=== PATIENT | male | born 1950 | race Caucasian/White ===

== ENCOUNTER 2024-12-15 15:26 | Emergency (ER) | payer OTHER, SELFPAY ==
[2024-12-15] VITALS (10 sets, daily range): BP systolic 148–157; BP diastolic 88–93; PULSE 69–87; RESP 11–28; TEMP 36.8; O2SAT 99–100
--- NOTE | ~2024-12-15 | XR_ITS ---
EXAMINATION: XR chest 2V Exam Date/Time: 12/15/2024 16:02 CDT HISTORY: dizziness Comparison: None. RESULT: Lines, tubes, and devices: Median sternotomy wires. Several wires are fractured but remain in normal position. Lungs and pleura: Clear. Cardiomediastinal silhouette: Stable. Other: No acute osseous or upper abdominal finding. IMPRESSION: No acute cardiopulmonary process. Reviewed, dictated and finalized at location K.
--- NOTE | ~2024-12-15 | CT_ITS ---
EXAMINATION: CT brain wo con DATE: 12/15/2024 16:30 INDICATION: dizziness . TECHNIQUE: Computed tomography (CT) of the head was performed without intravenous contrast. The mA wa s adjusted according to patient size. Iterative reconstruction technique was employed. The dose-lengt h product was 681.00 mGy-cm. COMPARISON: None. FINDINGS: No acute intracranial hemorrhage or extra-axial fluid collection. No hydrocephalus, mass, or herniation. No acute ischemic infarct. Unremarkable dural venous sinus attenuation. No acute osseous abnormality. Bilateral maxillary retention cysts/polyps, trace left mastoid fluid, the remaining aerated spaces ar e clear. Mild atrophy and chronic white matter change. Atherosclerotic intracranial calcification. IMPRESSION: No acute intracranial process. Reviewed, dictated and finalized at location K.
[2024-12-15 16:18] LABS: Basophils Absolute Auto 0.1 K/mm3 (0.0-0.1); Basophils Percent Auto 0.9 % (0.2-1.2); Eosinophils Absolute Auto 0.1 K/mm3 (0-0.3); Eosinophils Percent Auto 1.6 % (0-4.4); Hematocrit 41.2 % (42.0-52.0); Hemoglobin 13.5 g/dL (14.0-18.0); Immature Granulocyte Absolute 0.04 K/mm3 (0.00-0.031); Immature Granulocyte Percent A 0.5 % (0-0.5); Lymphocytes Absolute Auto 2.05 K/mm3 (0.9-3.2); Lymphocytes Percent Auto 25.1 % (18.3-44.2); Mean Corpuscular HGB Conc 32.8 g/dl (32-36); Mean Corpuscular Hemoglobin 28.2 pg (26-34); Mean Platelet Volume 10.8 fl (7.4-10.4); Monocytes Absolute Auto 0.6 K/mm3 (0.1-0.6); Monocytes Percent Auto 7.6 % (2.6-8.5); Neutrophils Absolute Auto 5.3 K/mm3 (1.3-6.7); Neutrophils Percent Auto 64.3 % (45.5-73.1); Platelet Count Result 257 k/mm3 (150-375); Red Blood Count 4.79 M/mm3 (4.6-6.20); Red Cell Distribution Width 14.2 % (11.5-14.5); White Blood Count 8.2 K/mm3 (4.5-10.0)
[2024-12-15] MEDS: SODIUM CHLORIDE 0.9% IV 1,000 ML 999 ML IV CONT (16:34)
[2024-12-15 16:35] LABS: Alanine Aminotransferase 26 U/L (6-50); Albumin Level 4.1 g/dL (3.5-5.1); Alkaline Phosphatase 88 U/L (38-126); Anion Gap 18 mmol/L (4-12); Aspartate Amino Transferase 29 U/L (17-59); Bilirubin,Total 0.5 mg/dL (0.2-1.3); Blood Urea Nitrogen 19 mg/dL (9-20); Calcium 9.1 mg/dL (8.4-10.2); Carbon Dioxide 15 mmol/L (22-30); Chloride 104 mmol/L (98-107); Estimated CRCL calculation 44 ml/min; Estimated Glomerular Filt Rate 41; Glucose 263 mg/dL (65-110); Potassium 3.6 mmol/L (3.4-5.0); Sodium 137 mmol/L (137-145); Total Protein 7.6 g/dL (6.3-8.2)
[2024-12-15] MEDS: MECLIZINE HCL 25 MG TABLET PO (16:35)
[2024-12-15 16:36] LABS: Ethanol < 10 mg/dL (<10)
[2024-12-15 17:09] LABS: Thyroid Stimulating Hormone Reflex 0.879 uIU/mL (0.465-4.68)
[2024-12-15 17:52] LABS: Add Urine Microscopic? YES; Appearance Urine Clear (Clear); Bacteria Urine None Seen /hpf; Bilirubin Urine Negative (Negative); Blood Urine Negative (Negative); Color Urine Yellow (Yellow); Glucose Urine UA 3+ mg/dL (Negative); Ketones Urine Negative (Negative); Leukocyte Esterase Ur Negative LEU/UL (Negative); Nitrate Urine Negative (Negative); Non Pathogenic Casts 0-2; Protein Urine 1+ mg/dL (Negative); RBC Urine 0-2 /hpf (0-2); Specific Grav Ur 1.015 (1.001-1.035); Squamous Epithelial Cell Urine None Seen /hpf (Few); Urobilinogen Urine 0.2 mg/dL (<2.0); WBC Urine 0-5 /hpf (0-3); pH Urine 5.5 (5.0-9.0)
[2024-12-15 18:58] LABS: Barbiturate Screen Urine Negative (Negative); Benzodiazepines Screen Urine Negative (Negative); Cannabinoid Screen Urine Negative (Negative); Cocaine Screen Urine Negative (Negative); Methadone Screen Urine Negative (Negative); Opiate Screen Urine Negative (Negative); Phencyclidine Screen Urine Negative (Negative)
[2024-12-15 19:04] LABS: Amphetamine Screen Urine Negative (Negative)
--- NOTE | 2024-12-15 19:05 | ED.GENADULT ---
HPI - General Adult General Chief complaint: Dizziness <Pascual Joseph MD - Last Filed: 12/15/24 19:38> Stated complaint: diarrhea <Pascual Joseph MD - Last Filed: 12/15/24 19:38> Time Seen by Provider: 12/15/24 15:40 <Pascual Joseph MD - Last Filed: 12/15/24 19:38> History of Present Illness HPI narrative: Patient is a 74-year-old male who presents ER with multiple complaints. Main complaint is dizziness. Spinning. Ongoing for days. Worse when he rolls over but also when he sits up and when he tries to walk. No fevers or chills or sweats. He has also been having some diarrhea that is been a chronic issue and he has seen his PCP about it. He has altered his diet without improvement. No rub dark black stools. Patient's final issues depression. Reports he has been depressed for over 6 months. His left him and is living in [place]. He did have a moment 3 weeks ago where he had told his [employer] that he was going to drive down to [place] and shoot her. Please came to his home. He was not taking inject custody. 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 Has no access to fire arms because he spent 9 months in intermediate for having a modified weapon in [place]. He has no SI or HI at this time. <Pascual Joseph MD - Last Filed: 12/15/24 19:38> Related Data Home medications: Home Medications ?Medication ?Instructions ?Recorded ?Confirmed ?Last Taken ?Type aspirin 81 mg tablet,delayed 81 mg PO DAILY 03/22/24 11/05/24 Unknown History release (Adult Aspirin Regimen) calcium 600 mg (as carbonate)-vit 1 tablet PO DAILY 03/22/24 11/05/24 Unknown History D3 20 mcg (800 unit) chewable tablet (Caltrate plus D) metoprolol tartrate 75 mg tablet 75 mg PO DAILY 03/22/24 11/05/24 Unknown History multivitamin 1 tablet PO DAILY 03/22/24 11/05/24 Unknown History tamsulosin 0.4 mg capsule 0.4 mg PO DAILY 03/22/24 11/05/24 Unknown History <Pascual Joseph MD - Last Filed: 12/15/24 19:38> Allergies/adverse reactions: Allergies Allergy/AdvReac Type Severity Reaction Status Date / Time No Known Allergies Allergy Verified 12/15/24 15:33 <Pascual Joseph MD - Last Filed: 12/15/24 19:38> Review of Systems Review of Systems: All systems reviewed & are unremarkable except as noted in HPI and below <Pascual Joseph MD - Last Filed: 12/15/24 19:38> Constitutional: Constitutional: Reports no additional constitutional complaints <Pascual Joseph MD - Last Filed: 12/15/24 19:38> ENT: Reports system reviewed and no additional complaints, except as documented <Pascual Joseph MD - Last Filed: 12/15/24 19:38> Cardiovascular: Cardiovascular: Reports no additional cardiovascular complaints <Pascual Joseph MD - Last Filed: 12/15/24 19:38> Respiratory: Respiratory: Reports no additional respiratory complaints <Pascual Joseph MD - Last Filed: 12/15/24 19:38> Gastrointestinal: Gastrointestinal: Reports no additional gastrointestinal complaints <Pascual Joseph MD - Last Filed: 12/15/24 19:38> Neurologic: Reports system reviewed and no additional complaints, except as documented <Pascual Joseph MD - Last Filed: 12/15/24 19:38> PMFSH Past Medical History Medical History: Medical History Heart disease Kidney disease Diabetes <Pascual Joseph MD - Last Filed: 12/15/24 19:38> Surgical History Surgical History: Surgical History History of left knee replacement H/O heart artery stent most recent 12/2023 Hx of heart bypass surgery 1997 <Pascual Joseph MD - Last Filed: 12/15/24 19:38> Family History Family History: Family History Mother Diabetes mellitus Hypertension Father Alcoholism <Pascual Joseph MD - Last Filed: 12/15/24 19:38> Social History Social History: Social History Smoking status: Never smoker Second hand tobacco smoke exposure: Yes Alcohol intake: current Substance use: never Do You Feel Safe in your Home?: Yes Lack of Transportation: No Lack of Food: Never True Current Housing: I Have Housing Concerned About Future Housing: No Difficulty Paying Gas/Electric Bills: No Difficulty Paying for Meds: No Currently Unemployed: No Education: Trade/Vocational Certificate Difficulty w/ Childcare or Family Care: No Living arrangements: alone Occupation/Education: retired Gender identity (if verbalized by the patient): Male Sexual Orientation (if Verbalized by the Patient): Straight or Heterosexual Spiritual care concerns: No Agree to blood products: Yes <Pascual Joseph MD - Last Filed: 12/15/24 19:38> Exam Narrative: GENERAL: Well-appearing, well-nourished, and in no acute distress. HEAD: Normocephalic, atraumatic. EYES: PERRLA and EOMI. Horizontal nystagmus bilaterally. ENT: Mucous membranes moist. Normal TMs bilaterally, there was mild cerumen impaction right side but is irrigated and removed by nursing staff. NECK: Supple. CHEST: Clear to auscultation. No respiratory distress. HEART: Regular rate and rhythm. Normal peripheral pulses. ABDOMEN: Soft, nontender, nondistended. EXTREMITIES: Normal range of motion. No edema. SKIN: Warm, dry, no rash. NEURO: Clear speech, no facial droop, normal strength in upper and lower extremities. Slightly imbalanced when standing. Alert and oriented x3. PSYCH: Normal mood and affect. Tearful when talking about his . <Pascual Joseph MD - Last Filed: 12/15/24 19:38> Course Course Emergency Course: 193: Vertigo improved with meclizine and Valium. No stroke on imaging. Apparently patient had called his daughter mentioned outside today so we will have crisis come out and evaluate him. <Pascual Joseph MD - Last Filed: 12/15/24 19:38> 193: Vertigo improved with meclizine and Valium. No stroke on imaging. Apparently patient had called his daughter mentioned outside today so we will have crisis come out and evaluate him. Patient signed out to me at 19:50 pending evaluation by crisis but he has been ambulating and dizziness/vertigo improved. Crisis evaluated patient and perform safety plan. Did not feel he met involuntary criteria. Stable for discharge with follow up. RN Lynn does raise concern due to conversation she had had with patient's daughter and concern he might still have access to weapons. Crisis team did go back in and talk with patient with Lynn present as well and then also called patient's daughter. All are in consensus with discharge after safety planning and risk is felt to be low. Patient's daughter/POA was also given crisis team's direct number. <Honey Morales MD - Last Filed: 12/16/24 08:40> Vital Signs Vital signs: Vital Signs Temperature 98.3 F 12/15/24 15:28 Pulse Rate 76 12/15/24 15:28 Respiratory Rate 18 12/15/24 15:28 Blood Pressure 157/93 H 12/15/24 15:28 Pulse Oximetry 99 12/15/24 15:28 Oxygen Delivery Room Air 12/15/24 15:28 Temperature 98.3 F 12/15/24 15:28 Pulse Rate 69 12/15/24 17:34 Respiratory Rate 12 12/15/24 17:34 Blood Pressure 148/88 H 12/15/24 16:02 Pulse Oximetry 100 12/15/24 17:34 Oxygen Delivery Room Air 12/15/24 15:40 <Pascual Joseph MD - Last Filed: 12/15/24 19:38> Vital Signs Temperature 98.3 F 12/15/24 15:28 Pulse Rate 76 12/15/24 15:28 Respiratory Rate 18 12/15/24 15:28 Blood Pressure 157/93 H 12/15/24 15:28 Pulse Oximetry 99 12/15/24 15:28 Oxygen Delivery Room Air 12/15/24 15:28 Temperature 98.3 F 12/15/24 15:28 Pulse Rate 69 12/15/24 17:34 Respiratory Rate 12 12/15/24 17:34 Blood Pressure 148/88 H 12/15/24 16:02 Pulse Oximetry 100 12/15/24 17:34 Oxygen Delivery Room Air 12/15/24 15:40 <Honey Morales MD - Last Filed: 12/16/24 08:40> Medical Decision Making Vital Signs Vital Signs: Vital Signs Temperature 98.3 F 12/15/24 15:28 Pulse Rate 76 12/15/24 15:28 Respiratory Rate 18 12/15/24 15:28 Blood Pressure 157/93 H 12/15/24 15:28 Pulse Oximetry 99 12/15/24 15:28 Oxygen Delivery Room Air 12/15/24 15:28 Temperature 98.3 F 12/15/24 15:28 Pulse Rate 69 12/15/24 17:34 Respiratory Rate 12 12/15/24 17:34 Blood Pressure 148/88 H 12/15/24 16:02 Pulse Oximetry 100 12/15/24 17:34 Oxygen Delivery Room Air 12/15/24 15:40 <Pascual Joseph MD - Last Filed: 12/15/24 19:38> Vital Signs Temperature 98.3 F 12/15/24 15:28 Pulse Rate 76 12/15/24 15:28 Respiratory Rate 18 12/15/24 15:28 Blood Pressure 157/93 H 12/15/24 15:28 Pulse Oximetry 99 12/15/24 15:28 Oxygen Delivery Room Air 12/15/24 15:28 Temperature 98.3 F 12/15/24 15:28 Pulse Rate 69 12/15/24 17:34 Respiratory Rate 12 12/15/24 17:34 Blood Pressure 148/88 H 12/15/24 16:02 Pulse Oximetry 100 12/15/24 17:34 Oxygen Delivery Room Air 12/15/24 15:40 <Honey Morales MD - Last Filed: 12/16/24 08:40> Lab Data Result diagrams: 12/15/24 16:12 12/15/24 16:12 <Pascual Joseph MD - Last Filed: 12/15/24 19:38> Labs: Lab Results 12/15/24 12/15/24 12/15/24 Range/Units 16:12 17:23 20:24 WBC 8.2 (4.5-10.0) K/mm3 RBC 4.79 (4.6-6.20) M/mm3 Hgb 13.5 L (14.0-18.0) g/dL Hct 41.2 L (42.0-52.0) % MCV 86.0 (80-100) fl MCH 28.2 (26-34) pg MCHC 32.8 (32-36) g/dl RDW 14.2 (11.5-14.5) % Plt Count 257 (150-375) k/mm3 MPV 10.8 H (7.4-10.4) fl Immature Gran % (Auto) 0.5 (0-0.5) % Neut % (Auto) 64.3 (45.5-73.1) % Lymph % (Auto) 25.1 (18.3-44.2) % Pitt % (Auto) 7.6 (2.6-8.5) % Eos % (Auto) 1.6 (0-4.4) % Baso % (Auto) 0.9 (0.2-1.2) % Lymph # (Auto) 2.05 (0.9-3.2) K/mm3 Pitt # (Auto) 0.6 (0.1-0.6) K/mm3 Eos # (Auto) 0.1 (0-0.3) K/mm3 Baso # (Auto) 0.1 (0.0-0.1) K/mm3 Abs Immat Gran (auto) 0.04 H (0.00-0.031) K/mm3 Absolute Neuts (auto) 5.3 (1.3-6.7) K/mm3 Absolute Nucleated RBC 0.000 (0.0-0.012) K/mm3 Nucleated RBC % 0.0 (0.0-0.2) % Sodium 137 (137-145) mmol/L Potassium 3.6 (3.4-5.0) mmol/L Chloride 104 (98-107) mmol/L Carbon Dioxide 15 L (22-30) mmol/L Anion Gap 18 H (4-12) mmol/L BUN 19 (9-20) mg/dL Creatinine 1.65 H (0.7-1.3) mg/dL Estim Creat Clear Calc 44 ml/min Estimated GFR 41 L (59 - ) Glucose 263 H (65-110) mg/dL Calcium 9.1 (8.4-10.2) mg/dL Total Bilirubin 0.5 (0.2-1.3) mg/dL AST 29 (17-59) U/L ALT 26 (6-50) U/L Alkaline Phosphatase 88 (38-126) U/L Total Protein 7.6 (6.3-8.2) g/dL Albumin 4.1 (3.5-5.1) g/dL TSH (Reflex) 0.879 (0.465-4.68) uIU/mL Urine Color Yellow (Yellow) Urine Appearance Clear (Clear) Urine pH 5.5 (5.0-9.0) Ur Specific Stanton 1.015 (1.001-1.035) Urine Protein 1+ H (Negative) mg/dL Urine Glucose (UA) 3+ H (Negative) mg/dL Urine Ketones Negative (Negative) mg/dL Ur Blood (Man) Negative (Negative) Urine Nitrate Negative (Negative) Urine Bilirubin Negative (Negative) Urine Urobilinogen 0.2 (<2.0) mg/dL Leukocyte Esterase Rfl Negative (Negative) ROBERTO/UL Urine RBC 0-2 (0-2) /hpf Urine WBC 0-5 (0-3) /hpf Ur Squamous Epith Cells None seen (Few) /hpf Urine Bacteria None seen /hpf Urine Casts 0-2 Urine Opiates Screen Negative (Negative) Urine Methadone Screen Negative (Negative) Ur Barbiturates Screen Negative (Negative) Ur Phencyclidine Scrn Negative (Negative) Ur Amphetamine Screen Negative (Negative) U Benzodiazepines Scrn Negative (Negative) Urine Cocaine Screen Negative (Negative) U Cannabinoids Screen Negative (Negative) Ethyl Alcohol < 10 (<10) mg/dL Influenza A (RT-PCR) Negative (Negative) Influenza B (RT-PCR) Negative (Negative) RSV (RT-PCR) Negative (Negative) SARS-CoV-2 RNA (RT-PCR) Negative (Negative) <Pascual Joseph MD - Last Filed: 12/15/24 19:38> Lab Results 12/15/24 12/15/24 12/15/24 Range/Units 16:12 17:23 20:24 WBC 8.2 (4.5-10.0) K/mm3 RBC 4.79 (4.6-6.20) M/mm3 Hgb 13.5 L (14.0-18.0) g/dL Hct 41.2 L (42.0-52.0) % MCV 86.0 (80-100) fl MCH 28.2 (26-34) pg MCHC 32.8 (32-36) g/dl RDW 14.2 (11.5-14.5) % Plt Count 257 (150-375) k/mm3 MPV 10.8 H (7.4-10.4) fl Immature Gran % (Auto) 0.5 (0-0.5) % Neut % (Auto) 64.3 (45.5-73.1) % Lymph % (Auto) 25.1 (18.3-44.2) % Pitt % (Auto) 7.6 (2.6-8.5) % Eos % (Auto) 1.6 (0-4.4) % Baso % (Auto) 0.9 (0.2-1.2) % Lymph # (Auto) 2.05 (0.9-3.2) K/mm3 Pitt # (Auto) 0.6 (0.1-0.6) K/mm3 Eos # (Auto) 0.1 (0-0.3) K/mm3 Baso # (Auto) 0.1 (0.0-0.1) K/mm3 Abs Immat Gran (auto) 0.04 H (0.00-0.031) K/mm3 Absolute Neuts (auto) 5.3 (1.3-6.7) K/mm3 Absolute Nucleated RBC 0.000 (0.0-0.012) K/mm3 Nucleated RBC % 0.0 (0.0-0.2) % Sodium 137 (137-145) mmol/L Potassium 3.6 (3.4-5.0) mmol/L Chloride 104 (98-107) mmol/L Carbon Dioxide 15 L (22-30) mmol/L Anion Gap 18 H (4-12) mmol/L BUN 19 (9-20) mg/dL Creatinine 1.65 H (0.7-1.3) mg/dL Estim Creat Clear Calc 44 ml/min Estimated GFR 41 L (59 - ) Glucose 263 H (65-110) mg/dL Calcium 9.1 (8.4-10.2) mg/dL Total Bilirubin 0.5 (0.2-1.3) mg/dL AST 29 (17-59) U/L ALT 26 (6-50) U/L Alkaline Phosphatase 88 (38-126) U/L Total Protein 7.6 (6.3-8.2) g/dL Albumin 4.1 (3.5-5.1) g/dL TSH (Reflex) 0.879 (0.465-4.68) uIU/mL Urine Color Yellow (Yellow) Urine Appearance Clear (Clear) Urine pH 5.5 (5.0-9.0) Ur Specific Stanton 1.015 (1.001-1.035) Urine Protein 1+ H (Negative) mg/dL Urine Glucose (UA) 3+ H (Negative) mg/dL Urine Ketones Negative (Negative) mg/dL Ur Blood (Man) Negative (Negative) Urine Nitrate Negative (Negative) Urine Bilirubin Negative (Negative) Urine Urobilinogen 0.2 (<2.0) mg/dL Leukocyte Esterase Rfl Negative (Negative) ROBERTO/UL Urine RBC 0-2 (0-2) /hpf Urine WBC 0-5 (0-3) /hpf Ur Squamous Epith Cells None seen (Few) /hpf Urine Bacteria None seen /hpf Urine Casts 0-2 Urine Opiates Screen Negative (Negative) Urine Methadone Screen Negative (Negative) Ur Barbiturates Screen Negative (Negative) Ur Phencyclidine Scrn Negative (Negative) Ur Amphetamine Screen Negative (Negative) U Benzodiazepines Scrn Negative (Negative) Urine Cocaine Screen Negative (Negative) U Cannabinoids Screen Negative (Negative) Ethyl Alcohol < 10 (<10) mg/dL Influenza A (RT-PCR) Negative (Negative) Influenza B (RT-PCR) Negative (Negative) RSV (RT-PCR) Negative (Negative) SARS-CoV-2 RNA (RT-PCR) Negative (Negative) <Honey Morales MD - Last Filed: 12/16/24 08:40> Discharge Plan Discharge Clinical Impression: Vertigo, Depressed mood <Pascual Joseph MD - Last Filed: 12/15/24 19:38> Patient Disposition: Home <Pascual Joseph MD - Last Filed: 12/15/24 19:38> Condition: Stable <Pascual Joseph MD - Last Filed: 12/15/24 19:38> Instructions: Antibiotic Form, Vertigo (ED), Dizziness (ED), Depression in Older Adults (ED) <Pascual Joseph MD - Last Filed: 12/15/24 19:38> Additional Instructions: Follow-up with primary care physician. Use the resources given to you by the crisis team. Return to the emergency department with any new or worsening symptoms. Continue taking your medications as prescribed. <Pascual Joseph MD - Last Filed: 12/15/24 19:38> Patient Language: Gibraltarian <Pascual Joseph MD - Last Filed: 12/15/24 19:38> Prescriptions: No Action levothyroxine 50 mcg capsule 50 mcg PO DAILY Qty: 90 0RF venlafaxine 75 mg tablet 75 mg PO DAILY Qty: 90 1RF Repatha SureClick 140 mg/mL pen injector 140 mg subcut .every 2 weeks Qty: 6 1RF irbesartan 150 mg tablet 150 mg PO DAILY Qty: 90 3RF aspirin [Adult Aspirin Regimen] 81 mg tablet,delayed release (DR/EC) 81 mg PO DAILY Caltrate 600 plus D 600 mg-20 mcg (800 unit) tablet,chewable 1 tablet PO DAILY multivitamin Tablet 1 tablet PO DAILY metoprolol tartrate 75 mg tablet 75 mg PO DAILY Patient Comments: Pt only takes 25 mg at bedtime tamsulosin 0.4 mg capsule 0.4 mg PO DAILY atorvastatin 80 mg tablet 80 mg PO DAILY Qty: 90 3RF isosorbide mononitrate 60 mg tablet extended release 24 hr 60 mg PO DAILY Qty: 90 2RF furosemide 40 mg tablet 40 mg PO QAM Qty: 90 2RF potassium chloride 10 mEq capsule, extended release 10 meq PO DAILY Qty: 90 1RF buspirone 10 mg tablet 10 mg PO BID Qty: 180 1RF pantoprazole 40 mg tablet,delayed release (DR/EC) 40 mg PO QAM Qty: 90 1RF Jardiance 25 mg tablet 25 mg PO DAILY Qty: 90 1RF Creon 36,000-114,000- 180,000 unit capsule,delayed release(DR/EC) 1 cap PO TID Qty: 270 1RF Rx Instructions: administer with meals and/or snacks clopidogrel 75 mg tablet 75 mg PO DAILY Qty: 90 1RF (DME) Accu-Chek Guide test strips Strip See Rx Instructions .ROUTE .COMPLEX Qty: 300 1RF Dose Instruction: USE TO CHECK BLOOD SUGAR THREE TIMES DAILY Rx Instructions: USE TO CHECK BLOOD SUGAR THREE TIMES DAILY insulin degludec [Tresiba FlexTouch U-100] 100 unit/mL (3 mL) insulin pen 70 unit subcut DAILY Qty: 15 3RF Mounjaro 5 mg/0.5 mL pen injector 5 mg subcut WEEKLY Qty: 2 0RF <Pascual Joseph MD - Last Filed: 12/15/24 19:38> Follow-up/Referrals: Thais Reddy APRN [Primary Care Provider] - <Pascual Joseph MD - Last Filed: 12/15/24 19:38> Stand Alone Forms: Work/School Release IP <Pascual Joseph MD - Last Filed: 12/15/24 19:38> Time of Disposition: 21:49 <Pascual Joseph MD - Last Filed: 12/15/24 19:38> 21:49 <Honey Morales MD - Last Filed: 12/16/24 08:40>
[2024-12-15] MEDS: diazePAM INJ (*CRX) 10 MG/2 ML SYRINGE 5 MG IV PUSH (19:09)
--- NOTE | 2024-12-15 19:48 | PC.NURSE ---
Pt medically cleared by ERP for mental evaluation d/t SI statements. Pt calm and cooperative at this time. [place] notified at this time for evaluation.
[2024-12-15 21:09] LABS: Influenza A QL RT-PCR Negative (Negative); Influenza B QL RT-PCR Negative (Negative); RSV RNA, RT-PCR. Negative (Negative); SARS-CoV-2 RNA PCR Negative (Negative)
== END 2024-12-15 22:33 | disposition home or self-care (01) ==
PROVIDERS: Emergency Medicine; Emergency Provider Student in an Organized Health Care Education/Training Program; PCP Nurse Practitioner Family
DX: R42 Dizziness and giddiness (principal); F32.A Depression, unspecified; Z79.82 Long term (current) use of aspirin; E11.9 Type 2 diabetes mellitus without complications; Z96.652 Presence of left artificial knee joint; I51.9 Heart disease, unspecified; Z95.5 Presence of coronary angioplasty implant and graft; Z20.822 Contact with and (suspected) exposure to COVID-19
CPT/HCPCS: 36415; 70450; 71046; 80053; 80307; 81001; 82077; 84443; 85025; 87637; 96361; 96374; 99284; A9270; J3360; J7030

== ENCOUNTER 2025-01-15 10:42 | Outpatient (CLI) | payer MEDICARE, SELFPAY ==
--- NOTE | ~2025-01-15 | XR_ITS ---
[XR ribs BI 3V w CXR 2V ] INDICATION: Status post fall. Rib pain. TECHNIQUE: Frontal projection of the upper ribs, frontal projection of the lower ribs, oblique projec tion of all the ribs, frontal inspiratory chest x-ray for interpretation. FINDINGS: There is a right ninth rib fracture. There is a left ninth rib fracture. Small left pleural effusion. There is left basilar airspace disease, likely atelectasis. There are no soft tissue abnor mality seen. The lungs are clear. IMPRESSION: 1: Bilateral ninth rib fractures. Left basilar atelectasis. Reviewed, dictated and finalized at location A.
== END 2025-01-15 10:43 | disposition home or self-care (01) ==
LOC: MICIMG 10:43
PROVIDERS: PCP Nurse Practitioner Family; Visit Provider Nurse Practitioner Family
DX: S22.32XA Fracture of one rib, left side, initial encounter for closed fracture (principal); S22.31XA Fracture of one rib, right side, initial encounter for closed fracture; X58.XXXA Exposure to other specified factors, initial encounter; F41.8 Other specified anxiety disorders; W19.XXXA Unspecified fall, initial encounter; Z91.148 Patient's other noncompliance with medication regimen for other reason; I25.10 Atherosclerotic heart disease of native coronary artery without angina pectoris; E78.1 Pure hyperglyceridemia; E11.9 Type 2 diabetes mellitus without complications; Z79.4 Long term (current) use of insulin; E03.9 Hypothyroidism, unspecified; E66.9 Obesity, unspecified; E66.812 Obesity, class 2; E66.01 Morbid (severe) obesity due to excess calories; Z68.36 Body mass index [BMI] 36.0-36.9, adult; K21.9 Gastro-esophageal reflux disease without esophagitis; N18.9 Chronic kidney disease, unspecified; R07.81 Pleurodynia; I12.9 Hypertensive chronic kidney disease with stage 1 through stage 4 chronic kidney disease, or unspecified chronic kidney disease
CPT/HCPCS: 71046; 71110

== ENCOUNTER 2025-03-14 11:15 | Outpatient (RCR) | payer MEDICARE, SELFPAY ==
--- NOTE | 2025-03-07 11:55 | OPREHPOC ---
Outpatient Therapy Plan of Care This is a Multidisciplinary Plan of Care that may contain components documented by all disciplines (PT, OT, and ST.) PT Problem 1 PT Problem #1 Knowledge Deficit PT Goal 1 Goal / Goal Update *independent with safety awareness and HEP Target Visit 8 PT Problem 2 PT Problem #2 Impaired Vestibular System PT Goal 1 Goal / Goal Update improve vestibular system, pt not have any reports of symptoms with: 1* rolling R/L in supine 2* supine to sit transfer 3* reaching to floor to picker packer item 4* walk 50' with head turn R/L 3x Target Visit 8
--- NOTE | 2025-03-07 11:55 | PTOPEVAL1 ---
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 Onset about 1 year Subjective Information symptoms: feels like I am moving when I am not; with walking, feel like I am in slow motion; when stand up- feel like things are moving, unsteady, not spinning; get dizzy with rolling over in bed and getting up out of bed; have problems with waking up in the morning, with sinus and runny nose, then goes away in about 1 hour; no meds for sinus' activity: live alone, play poker almost every day; independent with in-home and self care tasks; Reported Pain Level Pain Score 3: Self Report Additional Pain Score Comments reports neck is stiff and tight all the time; also grinds teeth, with pain in both jaws; history of neck pain and some tingling constant in thumb, 2,3,4 fingers Assessment PT Clinical Summary Lacho has the diagnosis of BPPV. He reports issues for about 1 year. Dizziness handicap index rating of 74/100. History and risk factors for vestibular issues with: multiple meds, neck pain, visual issues, sinus issues. With the evaluation, he was positive with testing for R anterior-posterior canal with [place] pike; maneuver performed to clear with good results and education to pt provided. With BP monitoring, he did have decrease with sit to stand transfer, with reports of light headed and unsteady. Skilled PT services are indicated for vestibular therapy/ BPPV- canal clearing, education to pt and further vestibular system assessment. Plan of Care Interventions Neuro Re-education,Patient/Caregiver Education, Therapeutic Activities,Therapeutic Exercise PT Services Indicated Yes Treatment Frequency and 1-2x/wk for 8 visits Duration These treatments will address the objective and functional deficits as defined above. The patient will be advanced safely and appropriately in order for the patient to progress towards his/her prior level of function. Additional exercises will be introduced and as well as a comprehensive home exercise program upon discharge, if needed, ?to ensure carryover of functional gains achieved in the clinic. This treatment plan has been reviewed and agreement upon by the patient.
--- NOTE | 2025-03-26 11:25 | OPREHPOC ---
Outpatient Therapy Plan of Care This is a Multidisciplinary Plan of Care that may contain components documented by all disciplines (PT, OT, and ST.) PT Problem 1 PT Problem #1 Knowledge Deficit PT Goal 1 Goal / Goal Update *independent with safety awareness and HEP 03-26-25 d/c- pt canceled appts goals not met Target Visit 8 PT Problem 2 PT Problem #2 Impaired Vestibular System PT Goal 1 Goal / Goal Update improve vestibular system, pt not have any reports of symptoms with: 1* rolling R/L in supine 2* supine to sit transfer 3* reaching to floor to tack picker item 4* walk 50' with head turn R/L 3x 03-26-25 d/c- pt canceled appts goals not met Target Visit 8
--- NOTE | 2025-03-26 11:25 | PTOPDC ---
Assessment and note entered by Pretty Bueno, PT Assessment Status Discharge - Pt Not Present ICD-10 Condition Codes (PT) BPPV H81.12 Onset about 1 year Subjective Information called on March 20 and canceled PT appointments due to feeling better and no longer needs treatment. Assessment PT Clinical Summary Lacho has received the PT evaluation and one treatment session. He called and reported he was better, and canceled his appointments. Discharge PT due to pt feeling better. Goals were not addressed. Plan of Care PT Services Indicated No
== END 2025-03-26 16:36 | disposition home or self-care (01) ==
LOC: ANHPT 11:15
PROVIDERS: PCP Nurse Practitioner Family; Visit Provider Nurse Practitioner Family
DX: H81.12 Benign paroxysmal vertigo, left ear (principal)
CPT/HCPCS: 95992; 97110; 97140; 97161; 97530